=== PATIENT | male | born 1990 | race Hispanic/Latino ===

== ENCOUNTER 2021-04-24 00:37 | Emergency (ER) | payer MEDICARE ==
--- NOTE | 2021-04-24 02:18 | Emergency Department Report ---
ED Psych HPI - General Chief Complaint: Psych Stated Complaint: HI/ AUDITORY HALLUCINATIONS Time Seen by Provider: 04/24/21 01:51 Source: EMS Mode of arrival: Stretcher - History of Present Illness Initial Comments: Chief complaint: "I am having command hallucinations to hurt people. I do not think she is going to assembly back to the residential." HPI: This is a 30-year-old male with history of schizophrenia who presents with "command hallucinations to hurt people". He has been punching persons at the residential. He has been at this residential for 6 months. 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 He has been compliant with Zyprexa. He denies any physical complaints. He denies suicidal ideation. MD Complaint: other (Auditory hallucinations command hallucinations) -: days(s) (Several days) Associated Psychiatric Symptoms: auditory hallucinations History of same: Yes Quality: constant Improves With: none Worsens With: none Associated Symptoms: denies other symptoms Treatments Prior to Arrival: none - Related Data Allergies Allergy/AdvReac Type Severity Reaction Status Date / Time No Known Allergies Allergy Verified 04/24/21 03:21 ED Review of Systems ROS: Stated complaint: HI/ AUDITORY HALLUCINATIONS Other details as noted in HPI Comment: All other systems reviewed and negative Constitutional: denies: chills Respiratory: denies: cough, shortness of breath Cardiovascular: denies: chest pain Gastrointestinal: denies: abdominal pain, nausea, vomiting Psychiatric: auditory hallucinations. denies: suicidal thoughts ED Past Medical Hx - Past Medical History Previous Medical History?: Yes Hx Psychiatric Treatment: Yes (SCHIZOPHRENIA) - Surgical History Past Surgical History?: No - Social History Smoking Status: Never Smoker Substance Use Type: None ED Physical Exam - General Limitations: No Limitations General appearance: alert, in no apparent distress - Head Head exam: Present: atraumatic, normocephalic - Eye Eye exam: Present: normal appearance - ENT ENT exam: Present: mucous membranes moist - Neck Neck exam: Present: normal inspection - Respiratory Respiratory exam: Present: normal lung sounds bilaterally. Absent: respiratory distress - Cardiovascular Cardiovascular Exam: Present: regular rate, normal rhythm. Absent: systolic murmur, diastolic murmur, rubs, gallop - GI/Abdominal GI/Abdominal exam: Present: soft, normal bowel sounds. Absent: distended, tenderness, guarding, rebound - Rectal Rectal exam: Present: deferred - Extremities Exam Extremities exam: Present: normal inspection - Back Exam Back exam: Present: normal inspection - Neurological Exam Neurological exam: Present: alert, oriented X3 - Psychiatric Psychiatric exam: Present: depressed, flat affect - Skin Skin exam: Present: warm, dry, intact, normal color. Absent: rash ED Course Vital Signs 04/24/21 00:38 Temperature 98.9 F Pulse Rate 103 H Respiratory 18 Rate Blood Pressure 105/72 [Left] O2 Sat by Pulse 99 Oximetry ED Medical Decision Making - Lab Data Result diagrams: 04/24/21 02:55 04/24/21 02:55 - Medical Decision Making Acute psychosis with history of schizophrenia. ED 1013. Patient is medically clear for psychiatric care. I have reviewed labs obtained including CBC chemistry serum toxicology. All unremarkable. Critical care attestation.: If time is entered above; I have spent that time in minutes in the direct care of this critically ill patient, excluding procedure time. ED Disposition Clinical Impression: Schizophrenia, Acute psychosis, Violent behavior Disposition: 30 STILL A PATIENT Is pt being admited?: No Does the pt Need Aspirin: No Condition: Stable
[2021-04-24 03:28] LABS: Basophils % (Auto) 0.3 % (0.0-1.8); Eosinophils # (Auto) 0.2 K/mm3 (0.0-0.4); Eosinophils % (Auto) 3.2 % (0.0-4.3); Hematocrit 42.2 % (35.5-45.6); Hemoglobin 13.3 gm/dl (11.8-15.2); Lymphocytes # (Auto) 1.6 K/mm3 (1.2-5.4); Lymphocytes % (Auto) 27.3 % (13.4-35.0); Mean Corpuscular HGB Conc 32 % (32-34); Monocytes # (Auto) 0.6 K/mm3 (0.0-0.8); Monocytes % (Auto) 9.5 % (0.0-7.3); Platelet Count 283 K/mm3 (140-440); Red Blood Count 6.06 M/mm3 (3.65-5.03); Red Cell Distribution Width 15.1 % (13.2-15.2)
[2021-04-24 03:33] LABS: BUN/Creatinine Ratio 13; Blood Urea Nitrogen 12 mg/dL (9-20); Calcium 8.7 mg/dL (8.4-10.2); Hemolysis Index 6
[2021-04-24 03:40] LABS: Mean Corpuscular Volume 70 fl (84-94)
[2021-04-24] MEDS ORDERED: POTASSIUM CHLORIDE ER 20 MEQ TAB PO ONE ×2 (07:04→11:28)
--- NOTE | 2021-04-24 07:48 | Emergency Department Report ---
Blank Doc - Documentation Documentation: Patient had no events throughout the night. Labs have been reviewed. Urine is still pending. We are awaiting psychiatric evaluation and disposition. Patient is medically cleared despite not having urine results. A UA that shows any type of infection or intoxicant would not contribute to the patient's current status.
[2021-04-24 09:37] LABS: Amphetamine Screen,Urine Negative; Benzodiazepines Screen,Urine Negative; Cannabinoid Screen,Urine Negative; Cocaine Screen,Urine Negative; Methadone Screen,Urine Negative; Opiate Screen,Urine Negative
[2021-04-24 09:48] LABS: Bilirubin,Urine NEG (Negative); Blood,Urine NEG (Negative); Color,Urine Yellow (Yellow); Mucus,Urine 3+ /HPF
--- NOTE | 2021-04-24 10:44 | Consultation ---
History of Present Illness - Reason for Consult Consult date: 04/24/21 Reason for consult: command hallucinations to hurt people - History of Present Psychiatric Illness The patient was seen today. He says he is hearing voices from God telling him to hurt people. He denies SI/HI. He says he has a history of schizophrenia and takes zyprexa. The says he is depressed. The patient denies any illicit drug use, alcohol or nicotine. PAST PSYCHIATRIC HISTORY Diagnoses: Schizophrenia Suicide attempts or Self-harm behavior: Denies Prior psychiatric hospitalizations: Yes Substance Abuse history: Denies Previous psychiatric medications tried: Olanzapine Outpatient treatment: Yes PAST MEDICAL HISTORY: Family Psychiatric History: Not available SOCIAL HISTORY Marital Status: Single Living Arrangements: assisted Employment Status: Disabled Access to guns/weapons: None reported Education: History of Abuse: None reported Legal History: None reported REVIEW OF SYSTEMS Constitutional: Negative for weight loss ENT: Negative for stridor Respiratory: Negative for cough or hemoptysis All other systems reviewed and are negative MENTAL STATUS EXAMINATION General Appearance and Behavior: Age appropriate, good hygiene, wearing appropriate clothes, fair eye contact, cooperative polite with questioning. Cooperation: Participating/engaged Psychomotor Behavior: unremarkable and within normal limits Mood: Depressed Affect and affective range: congruent with mood Thought Process: illogical Thought Content: command hallucinations Speech: Normal volume, Regular rate and rhythm Suicidal Ideation: Denies Homicidal Ideation: Denies Hallucinations: Auditory Impulse Control: Limited Insight and Judgment: Poor insight and good judgment Memory: Limited Attention: attentive Orientation: Alert, oriented 3 Assessment and Plan (1) Schizophrenia Current Visit: Yes Status: Acute Treatment Plan 1013 Olanzapine 5mg po daily Trazodone 50mg po qhs Medical: Per primary Disposition: Recommend acute psychiatric inpatient treatment Will follow. Thanks Case staffed with Dr. Mcconnell Medications and Allergies Allergies Allergy/AdvReac Type Severity Reaction Status Date / Time No Known Allergies Allergy Verified 04/24/21 03:21 Mental Status Exam - Vital signs Last Vital Signs Temp 98.9 F 04/24/21 00:38 Pulse 103 H 04/24/21 00:38 Resp 18 04/24/21 00:38 BP 105/72 04/24/21 00:38 Pulse Ox 99 04/24/21 00:38 Results Result Diagrams: 04/24/21 02:55 04/24/21 02:55 Abnormal lab results 04/24/21 04/24/21 04/24/21 Range/Units 02:55 02:55 02:55 RBC 6.06 H (3.65-5.03) M/mm3 MCV 70 L (84-94) fl MCH 22 L (28-32) pg [place] % (Auto) 9.5 H (0.0-7.3) % Potassium 3.5 L (3.6-5.0) mmol/L Glucose 107 H (75-100) mg/dL Salicylates < 0.3 L (2.8-20.0) mg/dL Acetaminophen (10.0-30.0) ug/mL 04/24/21 Range/Units 02:55 RBC (3.65-5.03) M/mm3 MCV (84-94) fl MCH (28-32) pg [place] % (Auto) (0.0-7.3) % Potassium (3.6-5.0) mmol/L Glucose (75-100) mg/dL Salicylates (2.8-20.0) mg/dL Acetaminophen 5.0 L (10.0-30.0) ug/mL All other labs normal.
[2021-04-24] MEDS ORDERED: LORazepam 2 MG/ML VIAL IM PRN (18:38)
[2021-04-24] MEDS ORDERED: HALOPERIDOL LACTATE 5 MG/1 ML INJ IM PRN (18:38)
[2021-04-24] MEDS: traZODone 50 MG TAB PO SCH (22:56)
--- NOTE | 2021-04-25 08:39 | Emergency Department Report ---
Blank Doc - Documentation Documentation: Patient is currently resting. There were no events throughout the course of the night. We are still awaiting psychiatric placement. Patient has no needs this morning.
--- NOTE | 2021-04-25 09:46 | Progress Note ---
Subjective - Reason for Consult Consult date: 04/25/21 Reason for consult: psychosis - Chief Complaint Chief complaint: The patient was seen today. He makes little eye contact. He denies SI/HI, but states God's voice is talking to him. When asking what was the voice saying, he replies "telling me stuff." REVIEW OF SYSTEMS Constitutional: Negative for weight loss ENT: Negative for stridor Respiratory: Negative for cough or hemoptysis All other systems reviewed and are negative MENTAL STATUS EXAMINATION General Appearance and Behavior: Age appropriate, good hygiene, wearing appropriate clothes, fair eye contact, cooperative polite with questioning. Cooperation: Participating/engaged Psychomotor Behavior: unremarkable and within normal limits Mood: Depressed Affect and affective range: congruent with mood Thought Process: illogical Thought Content: command hallucinations Speech: Normal volume, Regular rate and rhythm Suicidal Ideation: Denies Homicidal Ideation: Denies Hallucinations: Auditory Impulse Control: Limited Insight and Judgment: Poor insight and good judgment Memory: Limited Attention: attentive Orientation: Alert, oriented 3 Assessment and Plan (1) Schizophrenia Current Visit: Yes Status: Acute Treatment Plan 1013 Increase Olanzapine 10mg po daily Trazodone 50mg po qhs Medical: Per primary Disposition: Recommend acute psychiatric inpatient treatment Will follow. Thanks Case staffed with Dr. Mcconnell Mental Status Exam - Vital signs Last Vital Signs Temp 97.6 F 04/25/21 03:29 Pulse 78 04/25/21 03:29 Resp 16 04/25/21 03:29 BP 104/65 04/25/21 03:29 Pulse Ox 100 04/25/21 03:29
[2021-04-25] MEDS: traZODone 50 MG TAB PO SCH (21:38)
--- NOTE | 2021-04-26 11:13 | Progress Note ---
Subjective - Reason for Consult Consult date: 04/26/21 Reason for consult: hallucinations - Chief Complaint Chief complaint: The patient was seen today. He reports doing ok. The patient continues to present with command auditory hallucinations stating voices " telling me to hurt people. " The patient denies any current suicidal ideation. REVIEW OF SYSTEMS Constitutional: Negative for weight loss ENT: Negative for stridor Respiratory: Negative for cough or hemoptysis All other systems reviewed and are negative MENTAL STATUS EXAMINATION General Appearance and Behavior: Age appropriate, good hygiene, wearing appropriate clothes, fair eye contact, cooperative polite with questioning. Cooperation: Participating/engaged Psychomotor Behavior: unremarkable and within normal limits Mood: Depressed Affect and affective range: congruent with mood Thought Process: illogical Thought Content: command hallucinations Speech: Normal volume, Regular rate and rhythm Suicidal Ideation: Denies Homicidal Ideation: Denies Hallucinations: Auditory Impulse Control: Limited Insight and Judgment: Poor insight and good judgment Memory: Limited Attention: attentive Orientation: Alert, oriented 3 Assessment and Plan (1) Schizophrenia Current Visit: Yes Status: Acute Treatment Plan 1013 Increase Olanzapine 10mg po daily Trazodone 50mg po qhs Medical: Per primary Disposition: Recommend acute psychiatric inpatient treatment Will follow. Thanks Case staffed with Dr. Mcconnell Mental Status Exam - Vital signs Last Vital Signs Temp 97.3 F L 04/26/21 10:27 Pulse 73 04/26/21 10:27 Resp 16 04/26/21 10:27 BP 107/70 04/26/21 10:27 Pulse Ox 97 04/26/21 10:27
--- NOTE | 2021-04-26 11:58 | Emergency Department Report ---
Blank Doc - Documentation Documentation: This morning patient is resting comfortably. He is still having command hallu cinations. We are awaiting psychiatric admission.
[2021-04-26] MEDS ORDERED: diphenhydrAMINE 50 MG/ML VIAL IM ONE (16:55)
[2021-04-26 20:26] VITALS: BP 122/74
== END 2021-04-26 23:00 ==
LOC: ED 00:37
DX: F20.9 Schizophrenia, unspecified (principal); F29 Unspecified psychosis not due to a substance or known physiological condition; Z20.822 Contact with and (suspected) exposure to COVID-19
CPT/HCPCS: 36415; 80048; 80307; 81001; 85025; 96372; 99285; J1200; J1630; J2060; U0003; 80320; G0480